=== PATIENT | female | born 1970 | race Caucasian/White ===

== ENCOUNTER 2016-06-10 11:33 | Outpatient (CLI) | payer OTHER | END 2016-06-10 11:34 | disposition home or self-care (01) | DX: G47.30 Sleep apnea, unspecified (principal); R06.83 Snoring; R53.83 Other fatigue ==

== ENCOUNTER 2016-06-25 19:21 | Outpatient (CLI) | payer OTHER | END 2016-06-25 19:22 | disposition home or self-care (01) | DX: R06.83 Snoring (principal) ==

== ENCOUNTER 2016-07-03 14:16 | Outpatient (CLI) | payer OTHER | END 2016-07-03 14:17 | disposition home or self-care (01) | DX: R06.83 Snoring (principal) ==

== ENCOUNTER 2016-08-06 14:46 | Outpatient (CLI) | payer OTHER | END 2016-08-06 14:47 | disposition home or self-care (01) | LOC: SC 14:46 | PROVIDERS: ATTEND Nurse Practitioner Family | DX: R06.83 Snoring (principal) | CPT/HCPCS: 99212; 99213 ==

== ENCOUNTER 2016-09-26 13:44 | Outpatient (CLI) | payer OTHER ==
--- NOTE | 2016-09-26 22:09 | MRI Report ---
EXAM: MRI LUMBAR SPINE WITHOUT CONTRAST EXAM DATE: 09/26/2016 02:25 PM. CLINICAL HISTORY: Low back pain. COMPARISON: None. TECHNIQUE: Multiplanar, multisequence T1-weighted and fluid-sensitive sequences of the lumbar spine f rom T12 to S1 without contrast. Other: None. FINDINGS: Spinal Cord: The conus terminates at T12-L1. No signal abnormality in the visualized spinal cord. Alignment: Normal. No scoliosis or spondylolisthesis. Bone Marrow: Five [id number] lumbar vertebral bodies are assumed. No gross fractures or bone les ions. No bone marrow edema. Disk Levels/Facets: T12-L1: Unremarkable. L1-L2: Unremarkable. L2-L3: Unremarkable. L3-L4: Unremarkable. L4-L5: Unremarkable. L5-S1: Minimal disk bulge. Ligamentum flavum thickening. Mild canal stenosis. Mild foraminal stenoses . Musculature: Normal. No edema or fatty atrophy. Other: The visualized pelvic cavity is unremarkable. IMPRESSION: 1. Minimal disk bulge, ligamentum flavum thickening, and mild canal and foraminal stenoses at L5-S1. Comment: The following findings are so common in adults without low back pain that while we report th eir presence, they must be interpreted with caution and in the context of the clinical situation. (Re josey Muhammadk et al, Spine 2001) Prevalence of findings in patients without low back pain: Disk degeneration (any evidence): 92% Disk desiccation/T2 signal loss: 83% Disk height loss: 56% Disk bulge: 64% Disk protrusion: 32% Annular tear/high intensity zone: 38% [facility] Referring Provider Line: [phone] SITE ID: [id number]
== END 2016-09-26 13:45 | disposition home or self-care (01) ==
LOC: DI 13:44
PROVIDERS: ATTEND Pediatrics
DX: M51.87 Other intervertebral disc disorders, lumbosacral region (principal)
CPT/HCPCS: 72148

== ENCOUNTER 2018-03-19 07:55 | Emergency (ER) | payer OTHER ==
[2018-03-19 08:02] VITALS: BP 110/64
[2018-03-19] MEDS ORDERED: HYDROcod/ACETAM 5/325 MG TABLET PO STA (08:33)
[2018-03-19] MEDS ORDERED: DEXAMETHASONE 10 MG/ML VIAL PO STA (08:33)
[2018-03-19] MEDS ORDERED: LIDOCAINE PATCH 5% TOP STA (08:33)
--- NOTE | 2018-03-19 08:36 | ED Physician Documentation ---
History of Present Illness - Stated complaint Stated Complaint: BACK PX - Chief complaint Chief Complaint: Back Pain - Additonal information Additional information: hx from pt prior back injury slip and fall on ice has had interval MRI showing degen disk dz and some non impinging HNP has flare ups of back pain every few weeks falre up today no fever no abd pain no numbness no weakness rad down RLE to knee posterior no incont denies preg Review of Systems Constitutional: denies: Fever, Chills Cardiac: denies: Chest pain / pressure Respiratory: denies: Dyspnea GI: denies: Abdominal Pain : denies: Dysuria, Incontinent, Hematuria, Now EGA Musculoskeletal: reports: Back pain Neurologic: denies: Focal weakness, Numbness Immunocompromised: denies: Immunocompromised PD PAST MEDICAL HISTORY - Past Medical History Endocrine/Autoimmune: HyPOthyroidism Musculoskeletal: Fibromyalgia - Past Surgical History 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, 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, Other - Present Medications Home Medications: Ambulatory Orders Medication Instructions Recorded Confirmed Cyclobenzaprine [Flexeril] 03/19/18 Dicyclomine [Bentyl] 03/19/18 Escitalopram [Lexapro] 03/19/18 Levothyroxine Sodium [Synthroid] 03/19/18 Lidocaine Patch 5% [Lidoderm Patch] 03/19/18 Lidocaine Patch 5% [Lidoderm Patch] 1 patch TOP DAILY PRN #10 patch 03/19/18 Methocarbamol 03/19/18 predniSONE [Deltasone] 40 mg PO DAILY 3 Days #6 tablet 03/19/18 traZODone [Desyrel] 03/19/18 - Allergies Allergies/Adverse Reactions: Allergies Allergy/AdvReac Type Severity Reaction Status Date / Time codeine Allergy Rash Verified 03/19/18 08:03 - Social History Does the pt smoke?: No Smoking Status: Never smoker Does the pt drink ETOH?: Yes Does the pt have substance abuse?: No - Immunizations Immunizations are current?: Yes PD ED PE NORMAL - Vitals Vital signs reviewed: Yes - Cardiac Cardiac: RRR - Respiratory Respiratory: No respiratory distress, Clear bilaterally - Abdomen Abdomen: Non tender, Other (no pulsatile mass) - Back Back: Other (no focal spinal TTP redness swelling or warmth, diffuse lower back ST TTP and limited ROM) - Derm Derm: Normal color - Neuro Neuro: No motor deficit, No sensory deficit, Other (neg SLR, patellar DTR 2+/4 francisco javier, no clonus, denies saddle anesthesia, nl sensation, hip flexion, knee ext, foot dorsi plantar and great toe ext 5/5) Eye Opening: Spontaneous Motor: Obeys Commands Verbal: Oriented GCS Score: 15 Results - Vitals Vitals: Vital Signs - 24 hr 03/19/18 07:59 Temperature 36.6 C Heart Rate 87 Respiratory 16 Rate Blood Pressure 110/64 O2 Saturation 98 Oxygen O2 Source Room air Departure - Departure Disposition: Home, Self Care Clinical Impression: Sciatica Back pain Qualifiers: Back pain location: low back pain Chronicity: acute Back pain laterality: bilateral Sciatica presence: with sciatica Sciatica laterality: sciatica of right side Qualified Code(s): M54.41 - Lumbago with sciatica, right side Instructions: ED Neck Back Pain General, ED Back Care Tips, ED Sciatica Follow-Up: MATIAS CALHOUN MD [Primary Care Provider] - Prescriptions: Lidocaine Patch 5% [Lidoderm Patch] 1 patch TOP DAILY PRN #10 patch PRN Reason: pain predniSONE [Deltasone] 40 mg PO DAILY 3 Days #6 tablet Comments: Continue your muscle relaxants as prescribed Add the lidocaine patches to be applied to the most painful spot up to 12 hr a day And the steroids for 3 more days to decrease nerve inflammation Forms: Activity restrictions
== END 2018-03-19 08:46 | disposition home or self-care (01) ==
LOC: ED 07:55
DX: M54.41 Lumbago with sciatica, right side (principal); E03.9 Hypothyroidism, unspecified; M79.7 Fibromyalgia
CPT/HCPCS: 99283; A9270

== ENCOUNTER 2018-12-02 20:46 | Emergency (ER) | payer OTHER ==
[2018-12-02 20:54] VITALS: BP 141/85
[2018-12-02] MEDS ORDERED: MELOXICAM 7.5 MG TABLET PO STA (21:23)
[2018-12-02] MEDS ORDERED: HYDROcod/ACET 5/325 Prepack 4 PO STA (21:23)
--- NOTE | 2018-12-02 21:26 | ED Physician Documentation ---
PD HPI UPPER EXT INJURY - Stated complaint Stated Complaint: L ARM PX - Chief complaint Chief Complaint: Ext Problem - History obtained from History obtained from: Patient - History of Present Illness Location: Left (Without specific injury she developed lateral left elbow pain over the last week is been excruciating the last 3 to 4 days. No fevers or chills. 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 - Present Medications Home Medications: Ambulatory Orders Medication Instructions Recorded Confirmed Dicyclomine [Bentyl] 10 mg PO DAILY PRN 03/19/18 12/02/18 Levothyroxine Sodium [Synthroid] 100 mcg PO DAILY 03/19/18 12/02/18 Lidocaine Patch 5% [Lidoderm Patch] 1 patch TOP DAILY PRN #10 patch 03/19/18 12/02/18 Methocarbamol 500 mg PO DAILY 03/19/18 12/02/18 predniSONE [Deltasone] 40 mg PO DAILY 3 Days #6 tablet 03/19/18 12/02/18 traZODone [Desyrel] 50 mg PO DAILY 03/19/18 12/02/18 Hydrocodone/Acetaminophen 1 - 2 each PO Q6H PRN #14 tablet 12/02/18 [Hydrocodon-Acetaminophen 5-325] Meloxicam [Mobic] 7.5 mg PO BID PRN #20 tablet 12/02/18 - Allergies Allergies/Adverse Reactions: Allergies Allergy/AdvReac Type Severity Reaction Status Date / Time codeine Allergy Rash Verified 12/02/18 20:53 - Social History Does the pt smoke?: No Smoking Status: Never smoker Does the pt drink ETOH?: Yes Does the pt have substance abuse?: No - Immunizations Immunizations are current?: Yes - POLST Patient has POLST: No PD ED PE NORMAL - Vitals Vital signs reviewed: Yes - General General: Alert and oriented X 3, No acute distress - Extremities Extremities: Other (She is most comfortable holding the left arm flexed at the elbow. There is no warmth or redness of the joints. She is focally tender over the lateral epicondyle. She has a lot of pain with forced flexion of the wrist. No deformity. Normal neurovascular function of the hand.) - Neuro Neuro: Alert and oriented X 3, Normal speech Results - Vitals Vitals: Vital Signs - 24 hr 12/02/18 20:50 Temperature 36.3 C L Heart Rate 77 Respiratory 17 Rate Blood Pressure 141/85 H O2 Saturation 100 Oxygen O2 Source Room air Departure - Departure Disposition: 01 Home, Self Care Clinical Impression: Lateral epicondylitis Qualifiers: Laterality: left Qualified Code(s): M77.12 - Lateral epicondylitis, left elbow Condition: Good Record reviewed to determine appropriate education?: Yes Instructions: ED Epicondylitis Lateral Elbow Prescriptions: Hydrocodone/Acetaminophen [Hydrocodon-Acetaminophen 5-325] 1 - 2 each PO Q6H PRN #14 tablet PRN Reason: pain Meloxicam [Mobic] 7.5 mg PO BID PRN #20 tablet PRN Reason: Pain Comments: You can take your muscle relaxer along with the other medications, do not take any other NSAIDs with this. Return for new or worsening symptoms. Follow-up with your doctor within the week. Do not drink or drive while taking narcotic pain medication. Note that many narcotic pain relievers also contain Tylenol/acetaminophen. Please ensure that your total dose of acetaminophen from all sources does not exceed 3 g (3000 mg) per day. You may get constipated while on this medication. Take a stool softener such as Colace twice a day while you are on it. Also add an [id number] laxative such as senna or MiraLAX on any day that you do not have a bowel movement. If you received a narcotic pain medication or sedative while in the emergency department, do not drive for the next 24 hours. Your blood pressure was elevated today on check into the emergency department. This does not mean that you have hypertension, it is a common phenomenon to come to the emergency department and have elevated blood pressure. I recommend that you see your primary care physician within the week to have it rechecked when you are feeling better.
== END 2018-12-02 21:32 | disposition home or self-care (01) ==
LOC: ED 20:46
DX: M77.12 Lateral epicondylitis, left elbow (principal); R03.0 Elevated blood-pressure reading, without diagnosis of hypertension
CPT/HCPCS: 99282; 99283; A9270

== ENCOUNTER 2020-08-11 11:27 | Emergency (ER) | payer OTHER ==
[2020-08-11 11:47] VITALS: BP 128/92
--- OUTSIDE RECORDS SUMMARY | 2020-08-11 11:55 | EXTERNAL MEDICAL SUMMARY RPT | Continuity of Care Document ---
:1970 Demographics Phone Unavailable Preferred Language Unknown Marital Status Unknown Temple Affiliation Unknown Race Unknown Ethnic Group Unknown Author Organization [facility] Address [address] [phone] Phone Allergies Encounters Medications Problems Results
--- NOTE | 2020-08-11 12:54 | ED Physician Documentation ---
PD JIM HEENT - Stated complaint Stated Complaint: SINUS ISSUE - Chief complaint Chief Complaint: Heent - History obtained from History obtained from: Patient - Additional information Additional information: 50-year-old woman has been dealing with sinus pressure and drainage for 3 months. Saw her physician about a month and a half ago and was placed on cetirizine and fluticasone nasal spray. Over the last week or so has developed increasing pressure in the face as well as right ear popping and more purulent sinus drainage but still no fevers. Review of Systems Constitutional: denies: Fever, Chills Ears: reports: Ear pain. 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 - Present Medications Home Medications: Ambulatory Orders Medication Instructions Recorded Confirmed Dicyclomine [Bentyl] 10 mg PO DAILY PRN 03/19/18 12/02/18 Levothyroxine Sodium [Synthroid] 100 mcg PO DAILY 03/19/18 12/02/18 Lidocaine Patch 5% [Lidoderm Patch] 1 patch TOP DAILY PRN #10 patch 03/19/18 12/02/18 methocarbamoL [Methocarbamol] 500 mg PO DAILY 03/19/18 12/02/18 predniSONE [Deltasone] 40 mg PO DAILY 3 Days #6 tablet 03/19/18 12/02/18 traZODone [Desyrel] 50 mg PO DAILY 03/19/18 12/02/18 Hydrocodone/Acetaminophen 1 - 2 each PO Q6H PRN #14 tablet 12/02/18 [Hydrocodon-Acetaminophen 5-325] Meloxicam [Mobic] 7.5 mg PO BID PRN #20 tablet 12/02/18 Amox/Clav 875/125 [Augmentin] 1 each PO Q12H #20 tablet 08/11/20 predniSONE [Deltasone] 20 mg PO [id number] #21 tab 08/11/20 - Allergies Allergies/Adverse Reactions: Allergies Allergy/AdvReac Type Severity Reaction Status Date / Time codeine Allergy Rash Verified 08/11/20 11:48 - Social History Does the pt smoke?: No Smoking Status: Never smoker Does the pt drink ETOH?: Yes Does the pt have substance abuse?: No - Immunizations Immunizations are current?: Yes - POLST Patient has POLST: No PD ED PE NORMAL - Vitals Vital signs reviewed: Yes - General General: Alert and oriented X 3, No acute distress - HEENT HEENT: PERRL, EOMI, Pharynx benign - Neck Neck: Supple, no meningeal sign, No bony TTP - Neuro Neuro: Alert and oriented X 3, Normal speech Results - Vitals Vitals: Vital Signs - 24 hr 08/11/20 11:44 Temperature 36.6 C Heart Rate 101 H Respiratory 16 Rate Blood Pressure 128/92 H O2 Saturation 98 Oxygen O2 Source Room air PD MEDICAL DECISION MAKING - ED course ED course: 50-year-old woman with sinusitis that has failed conservative treatment without antibiotics. Given the time course and progressive symptoms she does merit a trial of antibiotic therapy per IDSA guidelines. Departure - Departure Disposition: 01 Home, Self Care Clinical Impression: Sinusitis Qualifiers: Sinusitis location: maxillary Chronicity: chronic Qualified Code(s): J32.0 - Chronic maxillary sinusitis Condition: Good Record reviewed to determine appropriate education?: Yes Instructions: ED Sinusitis Abx Tx Prescriptions: Amox/Clav 875/125 [Augmentin] 1 each PO Q12H #20 tablet predniSONE [Deltasone] 20 mg PO [id number] #21 tab Comments: Return or follow-up with your physician in a week if not improving. Prescriptions were sent electronically to [facility] in [place].
== END 2020-08-11 12:59 | disposition home or self-care (01) ==
LOC: ED 11:27
DX: J32.0 Chronic maxillary sinusitis (principal)
CPT/HCPCS: 99282; 99284